=== PATIENT | female | born 1960 | race Asian ===

== ENCOUNTER 2016-12-16 06:16 | Day surgery (SDC) | payer OTHER ==
[~2016-12-16] VITALS: Ht 165.1 cm; Wt 72.6 kg
[2016-12-16] MEDS ORDERED: PROPOFOL 200 MG/20 ML VIAL IV ONE (07:30)
[2016-12-16] MEDS ORDERED: fentaNYL 0.05 MG/ML VIAL ONE (07:32)
[2016-12-16] MEDS ORDERED: MIDAZOLAM 2 MG/2 ML VIAL ONE (07:33)
[2016-12-16] MEDS ORDERED: ONDANSETRON 4 MG/2 ML VIAL IVP PRN (07:50)
[2016-12-16] MEDS ORDERED: IBUPROFEN 800 MG TAB PO PRN (07:50)
[2016-12-16] MEDS ORDERED: MORPHINE SULFATE 4 MG/ML SYR IM/IVP PRN (07:50)
[2016-12-16] MEDS ORDERED: ACETAMINOPHEN/CODEINE 300/30MG 1 TAB PO PRN (07:50)
[2016-12-16] MEDS ORDERED: MIDAZOLAM 2 MG/2 ML VIAL IV ONE (08:10)
[2016-12-16] MEDS ORDERED: MORPHINE SULFATE 4 MG/ML SYR IVP PRN ×2 (08:10)
[2016-12-16] MEDS ORDERED: MORPHINE SULFATE 2 MG/ML SYR IVP PRN (08:10)
[2016-12-16] MEDS ORDERED: METOCLOPRAMIDE 10 MG/2 ML INJ VIAL IVP PRN (08:10)
== END 2016-12-16 09:25 | disposition home or self-care (01) ==
LOC: MDS 06:16 → MMU 06:17 → MDS 09:25
PROVIDERS: ATTEND Obstetrics & Gynecology
DX: N93.9 Abnormal uterine and vaginal bleeding, unspecified (principal); Z98.890 Other specified postprocedural states
CPT/HCPCS: 58120; 93005; J0690; J2250; J2704; J3010; J7060; J7120; 88305